=== PATIENT | female | born 1965 | race Caucasian/White ===

== ENCOUNTER 2025-05-09 18:46 | Emergency (ER) | payer OTHER, SELFPAY ==
[2025-05-09 19:08] VITALS: BP 159/84; PULSE 103; TEMP 36.8; O2SAT 99; BMI 40.4
--- NOTE | 2025-05-09 19:14 | CT_ITS ---
The [address] [address] Patient Name: BRIE BHATT MRN: [id number] date: 1965 Sex: F Assigned Patient Location: ER Current Patient Location: ER Accession/Order Number: [id number] Exam Date: 05/09/2025 19:55 Report Date: 05/09/2025 19:59 At the request of: JORJE GALLEGOS Procedure: CT head/brain wo con CT head/brain wo con 05/09/2025 7:44 PM SIGNS AND SYMPTOMS: ^fall frontal headache TECHNIQUE:Multi-detector CT axial slices of the brain were obtained without IV contrast. CT was performed with one or more of the following dose reduction techniques: Automated exposure control, adjustment of the mA and/or kV according to patient size, or use of iterative reconstruction technique. COMPARISON: None. FINDINGS: There is no shift of the midline structures, acute intracranial bleeding, mass effects, or evidence of acute ischemia. The ventricular system is normal in size. The brainstem and the cerebellum are unremarkable. The visualized intraorbital contents, the visualized paranasal sinuses, and the infratemporal soft tissues show no acute abnormality. The osseous structures in the skull base and the calvarium show no abnormality. CT/CT head/brain wo con IMPRESSION: No acute intracranial pathology. Impression dictated by: Barrington Calderon M.D. 05/09/2025 7:59 PM Dictation Location: [place] [address] Electronically authenticated by: [id number] Y Date: 05/09/2025 19:59
[2025-05-09] MEDS: DEXAMETHASONE SOD PHOS 10 MG/ML VIAL PO (19:27)
[2025-05-09] MEDS: KETOROLAC TROMETHAMINE 60 MG/2 ML VIAL IM (19:27)
--- NOTE | 2025-05-09 20:06 | ED_ITS ---
HPI HPI - General Adult General Chief complaint: Headache Stated complaint: HEADACHE Time Seen by Provider: 05/09/25 18:49 Source: patient Mode of arrival: walk-in Limitations: no limitations History of Present Illness HPI narrative: 59-year-old female presents the emergency room chief complaint of a headache. She states she had a fall 3 nights ago in her bedroom striking the front portion of her head. She denies any loss conscious. Excellently tripped and hit a bedroom dresser. She states yesterday and today she had increasing head pain while leaning forward and some dizziness. She does not take any anticoagulation medications. She does deny worst headache of her life. She said it just made her concerned every time she leans over she gets excruciating pain. Pupils are equal round reactive she has no focal neurological deficits. She said she also had some posterior head swelling after her fall. There is no swelling appreciated today. She is alert and oriented. Related Data Home Medications ?Medication ?Instructions ?Recorded ?Confirmed amitriptyline 25 mg tablet mg 05/09/25 epinephrine 0.3 mg/0.3 mL 05/09/25 injection, auto-injector losartan 25 mg tablet mg 05/09/25 montelukast 10 mg tablet mg 05/09/25 Allergies Allergy/AdvReac Type Severity Reaction Status Date / Time Penicillins Allergy Unknown Verified 05/09/25 19:14 Opioid HPI Opioid Management Most Recent Opioid Data: Last JAN Pain Assessment Today, 19:27 Review of Systems ROS Status of ROS 10 or more systems reviewed and unremark able except as noted in history and below PFSH PFSH Social History Little interest or pleasure in doing things: not at all Feeling down, depressed, or hopeless: not at all Exam Narrative Exam Narrative: All Systems are negative except as noted/marked.All systems reviewed and otherwise negative Nurses note and vital signs reviewed and patient is not hypoxic. General: The patient appears well and in no apparent distress. Patient is resting comfortably on cart. Skin: Warm, dry, no pallor noted. There is no rash noted. Head: Normocephalic, atraumatic Eye: Normal conjunctiva, no drainage, EOMI. PERRL Ears, Nose, Mouth, and Throat: oral mucosa is moist. Nares patent. Mouth without vesicles. Ear canals patent. Tm's without Erythema Cardiovascular: Regular Rate and Rhythm Respiratory: Patient is in no distress, no accessory muscle use, lungs are clear to auscultation, no wheezing, rales or rhonchi Back: non-tender, no CVA tenderness bilaterally to percussion. GI: Normal bowel sounds, no tenderness to palpation, no masses appreciated. No rebound, guarding, or rigidity noted. Musculoskeletal: The patient has no evidence of calf tenderness, no pitting edema, symmetrical pulses noted bilaterally Neurological: A&O x4, normal speech Psychiatric: Cooperative Constitutional Vital Signs, click to edit/add: Last Vital Signs Temp 98.2 F 05/09/25 19:08 Pulse 103 H 05/09/25 19:08 Resp 20 05/09/25 19:08 BP 159/84 H 05/09/25 19:08 Pulse Ox 99 05/09/25 19:08 O2 Del Method Room Air 05/09/25 19:08 Course Vital Signs Vital signs: Vital Signs Temperature 98.2 F 05/09/25 19:08 Pulse Rate 103 H 05/09/25 19:08 Respiratory Rate 20 05/09/25 19:08 Blood Pressure 159/84 H 05/09/25 19:08 Pulse Oximetry 99 05/09/25 19:08 Oxygen Delivery Method Room Air 05/09/25 19:08 Temperature 98.2 F 05/09/25 19:08 Pulse Rate 103 H 05/09/25 19:08 Respiratory Rate 20 05/09/25 19:08 Blood Pressure 159/84 H 05/09/25 19:08 Pulse Oximetry 99 05/09/25 19:08 Oxygen Delivery Method Room Air 05/09/25 19:08 Medical Decision Making [facility] Narrative Medical decision making narrative: 59-year-old female presents the emergency room chief complaint of a headache. She states she had a fall 3 nights ago in her bedroom striking the front portion of her head. She denies any loss conscious. Excellently tripped and hit a bedroom dresser. She states yesterday and today she had increasing head pain while leaning forward and some dizziness. She does not take any anticoagulation medications. She does deny worst headache of her life. She said it just made her concerned every time she leans over she gets excruciating pain. Pupils are equal round reactive she has no focal neurological deficits. She said she also had some posterior head swelling after her fall. There is no swelling appreciated today. She is alert and oriented. Chief complaint headache status post fall several days ago. She is alert and oriented. Head CT was read negative by radiology medicated here with Toradol and Decadron. She states her head pain is improving since medication. Patient will be discharged home with head injury and headache instructions. Patient agrees with plan of care will follow-up with her primary care physicians group. Differential Diagnosis Differential Diagnosis: Closed head injury, postconcussive syndrome, migraine, headache Medical Records Medical records reviewed: Yes I reviewed the patient's medical records Lab Data Lab results reviewed: Yes I reviewed the patient's lab results Imaging Data CT scan - head: Radiologist's impression: ITS Impressions Head CT 05/09/25 19:14 IMPRESSION: No acute intracranial pathology. Impression dictated by: Barrington Calderon M.D. 05/09/2025 7:59 PM [facility]ation [facility] Electron[facility] authenticated by: [id number] Y Date: 05/09/2025 19:59 Discharge Plan Discharge Chief Complaint: Headache Clinical Impression: Headache, Closed head injury Patient Disposition: Home, Self-Care Time of Disposition Decision: 20:05 Condition: Good Prescriptions / Home Meds: No Action amitriptyline 25 mg tablet losartan 25 mg tablet montelukast 10 mg tablet epinephrine 0.3 mg/0.3 mL auto-injector Print Language: Serbian Instructions: Head Injury (DC) Referrals: KELLY PARKER [Primary Care Provider, Family Practice] - 1 week
== END 2025-05-09 20:26 | disposition home or self-care (01) ==
PROVIDERS: Emergency Provider Emergency Medicine; PCP Family Medicine
DX: S09.8XXA Other specified injuries of head, initial encounter (principal); W01.190A Fall on same level from slipping, tripping and stumbling with subsequent striking against furniture, initial encounter; Y92.013 Bedroom of single-family (private) house as the place of occurrence of the external cause; R51.9 Headache, unspecified
CPT/HCPCS: 70450; 96372; 99285; J1100; J1885